=== PATIENT | male | born 1990 | race Caucasian/White ===

== ENCOUNTER 2016-05-29 22:03 | Emergency (ER) | payer OTHER ==
[2016-05-29 23:15] LABS: Anion Gap 18 mmol/L (10-20); BUN (Urea Nitrogen) 9 mg/dL (8.9-20.6); Calc. Creatinine Clearance 0 mL/min (70-130); Calcium 9.5 mg/dL (7.8-10.44); Carbon Dioxide 32 mmol/L (22-29); Chloride 96 mmol/L (98-107); Estimated GFR-MDRD Greater than 90; Glucose 240 mg/dL (70-105); Sodium 143 mmol/L (136-145)
[2016-05-29 23:22] LABS: Potassium 2.5 mmol/L (3.5-5.1)
[2016-05-29] MEDS ORDERED: NS 0.9% w/ 20 MEQ KCL 1,000 ML ONE (23:35)
[2016-05-30] MEDS ORDERED: Potassium Chloride 10 MEQ/100 ML PREMIX BAG ONE ×2 (02:28→05:17)
[2016-05-30 04:15] LABS: Anion Gap 17 mmol/L (10-20); BUN (Urea Nitrogen) 8 mg/dL (8.9-20.6); Calc. Creatinine Clearance 0 mL/min (70-130); Calcium 8.8 mg/dL (7.8-10.44); Carbon Dioxide 29 mmol/L (22-29); Chloride 99 mmol/L (98-107); Estimated GFR-MDRD Greater than 90; Glucose 279 mg/dL (70-105); Sodium 142 mmol/L (136-145)
[2016-05-30 04:21] LABS: Potassium 2.9 mmol/L (3.5-5.1)
[2016-05-30] MEDS ORDERED: Potassium Chloride 20 MEQ TAB ONE (04:37)
== END 2016-05-30 08:06 | disposition short-term general hospital (02) ==
LOC: NAV ERS 22:03
DX: E87.6 Hypokalemia (principal); E11.65 Type 2 diabetes mellitus with hyperglycemia; I10 Essential (primary) hypertension; Z79.4 Long term (current) use of insulin; Z79.899 Other long term (current) drug therapy
CPT/HCPCS: 80048; 83735; 84132; 93005; 96365; 96366; J3480